=== PATIENT | female | born 1960 | race Asian ===

== ENCOUNTER 2025-08-21 13:36 | Emergency (ER) | payer OTHER ==
[~2025-08-21] VITALS: Ht 160 cm; Wt 46.3 kg
[2025-08-21 13:41] VITALS: TEMP 98.1
[2025-08-21] MEDS ORDERED: ITRA100C2 PO (14:38)
[2025-08-21 16:16] VITALS: BP 140/97; O2SAT 98
== END 2025-08-21 16:00 | disposition home or self-care (01) ==
LOC: ER 13:40
DX: S62.634A Displaced fracture of distal phalanx of right ring finger, initial encounter for closed fracture (principal); S50.01XA Contusion of right elbow, initial encounter; Z88.1 Allergy status to other antibiotic agents; W11.XXXA Fall on and from ladder, initial encounter; Y93.89 Activity, other specified; Y92.89 Other specified places as the place of occurrence of the external cause; Y99.8 Other external cause status
CPT/HCPCS: 73080-TC; 73140-TC